=== PATIENT | female | born 1965 | race Caucasian/White ===

== ENCOUNTER 2017-02-11 07:54 | Emergency (ER) | payer OTHER ==
[~2017-02-11] VITALS: Ht 157.5 cm; Wt 99.3 kg
[2017-02-11 11:21] VITALS: BP 118/61
== END 2017-02-11 11:06 | disposition home or self-care (01) ==
LOC: ED 07:54
DX: M62.830 Muscle spasm of back (principal); M54.5 Low back pain
CPT/HCPCS: J2550; J3010

== ENCOUNTER 2017-02-12 08:01 | Emergency (ER) | payer OTHER ==
[2017-02-12 10:55] LABS: CALCIUM 8.7 mg/dL (8.5-10.1); CARBON DIOXIDE 29.9 mmol/L (21-32); CHLORIDE SERUM 106 mmol/L (98-107); CREATININE SERUM 0.8 mg/dL (0.6-1.0); GFR1 > 60 mL/min; GLUCOSE SERUM 92 mg/dL (74-106); POTASSIUM SERUM 4.2 mmol/L (3.5-5.1); SODIUM SERUM 143 mmol/L (136-145)
[2017-02-12 11:00] LABS: ALBUMIN 3.4 g/dL (3.4-5.0); ALKALINE PHOSPHATASE 54 U/L (46-116); ALT/SGPT 24 U/L (14-59); AMYLASE 53 U/L (25-115); AST/SGOT 17 U/L (15-37); BILIRUBIN TOTAL 0.3 mg/dL (0.20-1.00); LIPASE 204 IU/L (73-393); TOTAL PROTEIN, SERUM 7.3 g/dL (6.4-8.2)
[2017-02-12 11:01] LABS: BASOPHIL % 0.4 % (0-2); PLATELET COUNT 245 x10^3mcL (130-400); RED CELL DISTRIBUTION WIDTH 13.9 % (11.5-14.5)
[2017-02-12 13:20] VITALS: BP 110/68
== END 2017-02-12 13:20 | disposition home or self-care (01) ==
LOC: ED 08:01
PROVIDERS: Specialist
DX: M51.36 Other intervertebral disc degeneration, lumbar region (principal); G89.29 Other chronic pain; E66.9 Obesity, unspecified
CPT/HCPCS: 83880; J1885; J2405; J3010; J7030

== ENCOUNTER 2017-07-11 20:31 | Emergency (ER) | payer OTHER ==
[2017-07-11 21:51] VITALS: BP 130/74
== END 2017-07-11 21:51 | disposition home or self-care (01) ==
LOC: ED 20:31
DX: M25.571 Pain in right ankle and joints of right foot (principal)
CPT/HCPCS: J1885

== ENCOUNTER 2017-12-31 23:01 | Emergency (ER) | payer OTHER ==
[~2017-12-31] VITALS: Ht 154.9 cm; Wt 103.0 kg
[2017-12-31 23:16] VITALS: Ht 154.9 cm; Wt 103.0 kg
[2018-01-01 02:03] VITALS: BP 134/92
== END 2018-01-01 02:03 | disposition home or self-care (01) ==
LOC: ED 23:01
DX: G89.29 Other chronic pain (principal); M54.5 Low back pain; G47.00 Insomnia, unspecified; M51.36 Other intervertebral disc degeneration, lumbar region
CPT/HCPCS: J1885

== ENCOUNTER 2019-02-15 22:37 | Inpatient (IN) | payer BC, OTHER | END 2019-02-16 16:52 | disposition home or self-care (01) | LOC: ED 22:37 → DU 02-16 16:52 → ED 22:37 → DU 02-16 00:34 → ED 22:37 → DU 02-16 00:34 ==